=== PATIENT | female | born 1940 | race Caucasian/White ===

== ENCOUNTER 2017-08-13 11:26 | Emergency (ER) | payer SELFPAY ==
[2017-08-13] MEDS ORDERED: HYDROcodone/Acetaminophen 5/325 mg Tablet ONE (11:42)
--- NOTE | 2017-08-13 12:12 | RAD ---
THREE VIEWS RIGHT THUMB: DATE: 08/13/17. HISTORY: [facility] and has a laceration at eyebrow and swelling of the right thumb. FINDINGS: There is osteoarthritis involving the carpometacarpal, metacarpophalangeal, and interphalangeal joint s of the right thumb with prominent osteophyte seen involving the interphalangeal joint of the right thumb. However, no fracture or dislocation is appreciated. No other osseous abnormality. IMPRESSION: Osteoarthritis right thumb, but no fracture is visualized. POS: [facility]
== END 2017-08-13 13:42 | disposition home or self-care (01) ==
LOC: NAV ERS 11:26
DX: S01.112A Laceration without foreign body of left eyelid and periocular area, initial encounter (principal); S60.011A Contusion of right thumb without damage to nail, initial encounter; K21.9 Gastro-esophageal reflux disease without esophagitis; I10 Essential (primary) hypertension; E03.9 Hypothyroidism, unspecified; F41.9 Anxiety disorder, unspecified; F32.9 Major depressive disorder, single episode, unspecified; Z79.82 Long term (current) use of aspirin; Z79.899 Other long term (current) drug therapy; W17.89XA Other fall from one level to another, initial encounter
CPT/HCPCS: 12011